=== PATIENT | male | born 1970 | race Caucasian/White ===

== ENCOUNTER 2016-08-01 10:03 | Inpatient (IN) | payer OTHER ==
[~2016-08-01] VITALS: Ht 167.6 cm; Wt 76.5 kg
[~2016-08-01 10:03] MED LIST: APIX5TAB PO; ATOR40TA28 PO; INSLAN SQ; METO25 PO
[2016-08-01] MEDS ORDERED: ADENOSINE 3 MG/ML 2 ML VIAL IVP ONE ×2 (10:11→10:45)
[2016-08-01] MEDS ORDERED: LORazepam 2 MG/ML VIAL ONE (10:14)
[2016-08-01 10:17] LABS: GLUCOSE,POINT OF CARE 157 MG/DL (70-110)
[2016-08-01] MEDS ORDERED: LORazepam 2 MG/ML VIAL IVP ONE (10:45)
[2016-08-01 11:10] LABS: BASOPHILS % (AUTO) 0.4 % (0.0-2.0); EOSINOPHILS % (AUTO) 2.4 % (1.0-6.0); HEMATOCRIT 37.3 % (41-53); HEMOGLOBIN 12.5 g/dL (13.5-17.5); LYMPHOCYTES # (AUTO) 0.8 K/uL (1.0-4.8); LYMPHOCYTES % (AUTO) 9.6 % (22.0-44.0); MEAN CORPUSCULAR HEMOGLOBIN 29.9 pg (26.0-34.0); MEAN CORPUSCULAR HGB CONC 33.5 G/dL (31.0-37.0); MEAN CORPUSCULAR VOLUME 89 fL (80-100); MONOCYTES # (AUTO) 0.6 K/uL (0.1-1.0); MONOCYTES % (AUTO) 6.4 % (2.0-9.0); NEUTROPHILS # (AUTO) 7.1 K/uL (1.8-7.7); NEUTROPHILS % (AUTO) 81.2 % (40.0-70.0); PLATELET COUNT (AUTO) 135 K/uL (150-450); RED BLOOD CELL COUNT(AUTO) 4.18 MIL/uL (4.50-5.90); RED CELL DISTRIBUTION WIDTH 12.6 % (11.5-14.5); WHITE BLOOD COUNT (AUTO) 8.7 K/uL (4.5-11.0)
[2016-08-01 11:20] LABS: ANION GAP 7 mmol/L (8-16); CALCIUM, TOTAL 7.4 mg/dL (8.8-10.5); CARBON DIOXIDE 26 mmol/L (22-29); CHLORIDE 109 mmol/L (98-107); CREATININE 0.75 mg/dL (0.60-1.30); GLOMERULAR FILTR. RATE CALC > 60 mL/min (>60); POTASSIUM 3.2 mmol/L (3.5-5.1); SODIUM SERUM 142 mmol/L (136-145); UREA NITROGEN, BLOOD 14 mg/dL (7-18)
[2016-08-01 11:22] LABS: INR 1.1 (0.9-1.1); PROTHROMBIN TIME 11.2 SEC (9.4-11.6)
[2016-08-01 11:26] LABS: ALANINE AMINOTRANSFERASE 22 U/L (12-78); ALBUMIN 2.7 g/dL (3.4-5.0); ASPARTATE AMINOTRANSFERASE 15 U/L (15-37); BILIRUBIN,TOTAL 0.3 mg/dL (0.1-1.0); CREATINE KINASE, TOTAL 57 U/L (39-308); TOTAL PROTEIN, SERUM 5.3 g/dL (6.4-8.2)
[2016-08-01 11:27] LABS: B-TYPE NATRIURETIC PEPTIDE 19 pg/mL (0-100)
[2016-08-01] MEDS ORDERED: POTASSIUM CHL 20 MEQ/0.45% NS 1,000 ML IV ONE (12:00)
[2016-08-01] MEDS ORDERED: POTASSIUM CHLORIDE 20 MEQ ER TABLET PO ONE (12:00)
[2016-08-01] MEDS ORDERED: CALCIUM GLUCONATE 2,000 MG in DEXTROSE 5%-WATER 50 ML IV ONE (13:15)
[2016-08-01] MEDS ORDERED: MAGNESIUM SULFATE 4 GM/WATER 100 ML IV ONE (13:15)
[2016-08-01] MEDS ORDERED: MAGNESIUM SULFATE 4 GM/WATER 100 ML IV PRN (16:15)
[2016-08-01] MEDS ORDERED: MAGNESIUM OXIDE 400 MG TABLET PO PRN (16:15)
[2016-08-01] MEDS ORDERED: MAGNESIUM SULFATE 2 GM in DEXTROSE 5%-WATER 50 ML IV PRN (16:15)
[2016-08-01] MEDS ORDERED: ASPIRIN 81 MG CHEWABLE TABLET PO ONE (16:15)
[2016-08-01] MEDS ORDERED: MAGNESIUM HYDROXIDE SUSPENSION 30 ML UDCUP PO PRN (16:15)
[2016-08-01] MEDS ORDERED: HYDROCODONE/ACETAMINOPHEN 5-325 MG TABLET PO PRN (16:15)
[2016-08-01] MEDS ORDERED: BISACODYL 10 MG RECTAL RECTAL SUPPOSITORY PR PRN (16:15)
[2016-08-01] MEDS ORDERED: METOPROLOL TARTRATE 50 MG TABLET PO ONE (16:15)
[2016-08-01] MEDS ORDERED: 0.9% SODIUM CHLORIDE 10 ML SYRINGE IVP PRN (16:15)
[2016-08-01] MEDS ORDERED: POTASSIUM CHLORIDE 20 MEQ ER TABLET PO PRN (16:15)
[2016-08-01] MEDS ORDERED: ASPIRIN 325 MG TABLET PO ONE (16:15)
[2016-08-01] MEDS ORDERED: ACETAMINOPHEN 325 MG TABLET PO PRN ×2 (16:15)
[2016-08-01] MEDS ORDERED: MORPHINE SULFATE 2 MG/ML SYRINGE IVP PRN (16:15)
[2016-08-01] MEDS ORDERED: ONDANSETRON HCL 4 MG/2 ML VIAL IVP PRN ×2 (16:15)
[2016-08-01] MEDS ORDERED: DEXTROSE 50%-WATER 25 GM/50 ML SYRINGE IVP PRN (16:15)
[2016-08-01] MEDS ORDERED: POTASSIUM CHL 10 MEQ/WATER 50 ML IV PRN (16:15)
[2016-08-01] MEDS ORDERED: ZOLPIDEM TARTRATE 5 MG TABLET PO PRN (16:15)
[2016-08-01 18:46] VITALS: BP 145/103
[2016-08-01 19:20] VITALS: BP 142/90
[2016-08-01] MEDS ORDERED: INSULIN DETEMIR 100 UNITS/ML SQ SCH (21:00)
[2016-08-01] MEDS: DOCUSATE SODIUM 100 MG CAPSULE PO SCH (21:29)
[2016-08-01] MEDS: METOPROLOL TARTRATE 25 MG TABLET PO SCH (21:29)
[2016-08-01] MEDS: APIXABAN 5 MG TABLET PO SCH (21:29)
[2016-08-01] MEDS: INSULIN ASPART 100 UNITS/ML SQ PRN (21:31)
[2016-08-01 23:56] VITALS: BP 132/76
[2016-08-02 04:07] VITALS: BP 114/70
[2016-08-02] MEDS: INSULIN ASPART 100 UNITS/ML SQ PRN ×2 (05:52→12:02)
[2016-08-02 06:21] LABS: GLUCOSE,POINT OF CARE 83 MG/DL (70-110)
[2016-08-02 06:33] LABS: BASOPHILS % (AUTO) 0.2 % (0.0-2.0); EOSINOPHILS % (AUTO) 3.6 % (1.0-6.0); HEMATOCRIT 41.6 % (41-53); HEMOGLOBIN 13.7 g/dL (13.5-17.5); LYMPHOCYTES # (AUTO) 1.7 K/uL (1.0-4.8); LYMPHOCYTES % (AUTO) 20.9 % (22.0-44.0); MEAN CORPUSCULAR HEMOGLOBIN 29.8 pg (26.0-34.0); MEAN CORPUSCULAR HGB CONC 32.8 G/dL (31.0-37.0); MEAN CORPUSCULAR VOLUME 91 fL (80-100); MONOCYTES # (AUTO) 0.7 K/uL (0.1-1.0); NEUTROPHILS # (AUTO) 5.5 K/uL (1.8-7.7); NEUTROPHILS % (AUTO) 66.3 % (40.0-70.0); PLATELET COUNT (AUTO) 170 K/uL (150-450); RED BLOOD CELL COUNT(AUTO) 4.59 MIL/uL (4.50-5.90); RED CELL DISTRIBUTION WIDTH 13.1 % (11.5-14.5); WHITE BLOOD COUNT (AUTO) 8.3 K/uL (4.5-11.0)
[2016-08-02 06:57] LABS: ALANINE AMINOTRANSFERASE 25 U/L (12-78); ALBUMIN 3.1 g/dL (3.4-5.0); ANION GAP 6 mmol/L (8-16); ASPARTATE AMINOTRANSFERASE 15 U/L (15-37); BILIRUBIN,TOTAL 0.5 mg/dL (0.1-1.0); CALCIUM, TOTAL 8.4 mg/dL (8.8-10.5); CARBON DIOXIDE 30 mmol/L (22-29); CHLORIDE 106 mmol/L (98-107); CREATININE 0.74 mg/dL (0.60-1.30); GLOMERULAR FILTR. RATE CALC > 60 mL/min (>60); POTASSIUM 3.8 mmol/L (3.5-5.1); SODIUM SERUM 142 mmol/L (136-145); TOTAL PROTEIN, SERUM 6.2 g/dL (6.4-8.2); UREA NITROGEN, BLOOD 13 mg/dL (7-18)
[2016-08-02 07:54] VITALS: BP 122/80
[2016-08-02] MEDS ORDERED: PANTOPRAZOLE SODIUM 40 MG DR TABLET PO SCH (09:00)
[2016-08-02] MEDS ORDERED: ATORVASTATIN CALCIUM 40 MG TABLET PO SCH (09:00)
[2016-08-02] MEDS ORDERED: SOTALOL HCL 80 MG TABLET PO SCH (09:00)
[2016-08-02] MEDS: DOCUSATE SODIUM 100 MG CAPSULE PO SCH (09:00)
[2016-08-02] MEDS: METOPROLOL TARTRATE 25 MG TABLET PO SCH (09:33)
[2016-08-02] MEDS: APIXABAN 5 MG TABLET PO SCH (09:34)
[2016-08-02 11:09] VITALS: BP 131/80
[2016-08-02] MEDS ORDERED: SOTA80 PO (12:49)
[2016-08-02 16:37] LABS: GLUCOSE COMMENT 1 Received Meds; GLUCOSE,POINT OF CARE 256 MG/DL (70-110)
== END 2016-08-02 14:03 | disposition home or self-care (01) | DRG 201 ==
LOC: EMS 10:05 → 5N 16:15
PROVIDERS: ADMIT Internal Medicine; ATTEND Internal Medicine
DX: I47.1 Supraventricular tachycardia (principal); E43 Unspecified severe protein-calorie malnutrition; E83.42 Hypomagnesemia; I10 Essential (primary) hypertension; E83.51 Hypocalcemia; E78.00 Pure hypercholesterolemia, unspecified; D64.9 Anemia, unspecified; E78.5 Hyperlipidemia, unspecified; E87.6 Hypokalemia; Z88.0 Allergy status to penicillin; Z79.01 Long term (current) use of anticoagulants; Z79.899 Other long term (current) drug therapy; Z79.4 Long term (current) use of insulin; Z68.27 Body mass index [BMI] 27.0-27.9, adult
CPT/HCPCS: 82962; 83735; 84443; 93005; 93306; 96361; 96365; 96366; 96367; 96374; 96375; 99291; J0153; J0610; J2060; J3475; J3480; J7060